=== PATIENT | male | born 1995 | race Asian ===

== ENCOUNTER 2019-09-14 01:44 | Emergency (ER) | payer OTHER ==
--- NOTE | 2019-09-14 02:19 | ED ---
Complex/Multi-Sys Presentation - HPI Summary HPI Summary: Patient is a 24 y/o M presenting to the ED for a chief complaint of nausea and dysphagia that began on 09/12/19. After eating ramen on 09/12/19, patient noticed dysphagia when eating the noodles. Every time he eats or drinking anything, he reports having dysphagia, nausea, and a sensation of phlegm in his throat. Patient denies vomiting, abdominal pain, cough, sore throat, shortness of breath, rhinorrhea, fever, or chills. He recently returned from [facility] on 09/12/19. He denies any positive sick contact with someone that had coronavirus. - History Of Current Complaint Chief Complaint: EDNauseaVomitDiarrh Time Seen by Provider: 09/14/19 01:58 Hx Obtained From: Patient Onset/Duration: Sudden Onset, Lasting Days - Began on 09/12/19, Still Present Timing: Constant Severity Currently: Moderate Severity Initially: Moderate Associated Signs And Symptoms: Positive: Nausea. Negative: SOB, Cough, Vomiting , Abdominal Pain, Fever - Allergies/Home Medications Allergies/Adverse Reactions: Allergies Allergy/AdvReac Type Severity Reaction Status Date / Time No Known Allergies Allergy Verified 09/14/19 01:49 Home Medications: Home Medications Bismuth Subsalicylate [Pepto-Bismol] 2 tab PO ONCE PRN 09/14/19 [History Confirmed 09/14/19] PMH/Surg Hx/FS Hx/Imm Hx Previously Healthy: Yes Endocrine/Hematology History: Denies: Hx Diabetes Sensory History: Denies: Hx Legally Blind, Hx Deafness Opthamlomology History: Denies: Hx Legally Blind EENT History: Denies: Hx Deafness - Surgical History Surgical History: None Surgery Procedure, Year, and Place: None Infectious Disease History: No Infectious Disease History: Reports: Traveled Outside the [place] in Last 30 Days - Family History Known Family History: Negative: Diabetes - Social History Occupation: Student Alcohol Use: None Hx Substance Use: No Substance Use Type: Reports: None Hx Tobacco Use: No Smoking Status (MU): Never Smoked Tobacco Review of Systems Negative: Fever, Chills Positive: Other - Positive phlegm in the throat and dysphagia. Negative: Nasal Discharge Negative: Shortness Of Breath, Cough Positive: Nausea. Negative: Abdominal Pain, Vomiting All Other Systems Reviewed And Are Negative: Yes Physical Exam - Summary Physical Exam Summary: Constitutional: Well-developed, Well-nourished, Alert. (-) Distressed Skin: Warm, Dry HENT: Normocephalic; Atraumatic. Postnasal drip. Eyes: Conjunctiva normal Neck: Musculoskeletal ROM normal neck. (-) JVD, (-) Stridor, (-) Tracheal deviation Cardio: Rhythm regular, rate normal, Heart sounds normal; Intact distal pulses; The pedal pulses are 2+ and symmetric. Radial pulses are 2+ and symmetric. (-) Murmur Pulmonary/Chest wall: Effort normal. (-) Respiratory distress, (-) Wheezes, (-) Rales Abd: Soft, (-) tenderness, (-) Distension, (-) Guarding, (-) Rebound Musculoskeletal: (-) Edema Lymph: (-) Cervical adenopathy Neuro: Alert, Oriented x3 Psych: Mood and affect Normal Triage Information Reviewed: Yes Vital Signs On Initial Exam: Initial Vitals Temp Pulse Resp BP Pulse Ox 98.9 F 100 15 139/98 96 09/14/19 01:47 09/14/19 01:47 09/14/19 01:47 09/14/19 01:47 09/14/19 01:47 Vital Signs Reviewed: Yes Procedures - Sedation Patient Received Moderate/Deep Sedation with Procedure: No Diagnostics - Vital Signs Vital Signs Temp Pulse Resp BP Pulse Ox 09/14/19 02:01 87 96 09/14/19 01:59 88 128/76 95 09/14/19 01:47 98.9 F 100 15 139/98 96 - Laboratory Lab Statement: Any lab studies that have been ordered have been reviewed, and results considered in the medical decision making process. Complex Multi-Symp Course/Dx Course Of Treatment: Patient is a 24 y/o M presenting to the ED for a chief complaint of nausea and dysphagia that began on 09/12/19. After eating ramen on 09/12/19, patient noticed dysphagia when eating the noodles. Every time he eats or drinking anything, he reports having dysphagia, nausea, and a sensation of phlegm in his throat. Patient denies vomiting, abdominal pain, cough, sore throat, shortness of breath, rhinorrhea, fever, or chills. He recently returned from [facility] on 09/12/19. He denies any positive sick contact with someone that had coronavirus. On exam, postnasal drip. In the ED course, patient was given Claritin 10 mg PO. Patient will be discharged with a diagnosis of postnasal drip. Follow up with PCP in 1 day. - Diagnoses Provider Diagnoses: Postnasal drip Discharge ED - Sign-Out/Discharge Documenting (check all that apply): Patient Departure - Discharge - Discharge Plan Condition: Stable Disposition: HOME Prescriptions: Loratadine/Pseudoephedrine [Claritin-D 24 Hour Tablet] 1 each PO DAILY #20 tab.er.24h Pseudoephedrine TAB* [Sudafed TAB*] 60 mg PO TID PRN #10 tab PRN Reason: Congestion Patient Education Materials: Postnasal Drip (DC) Print Language: KHMER Forms: *School Release Referrals: [facility] - [facility] [Z.BUSINESS, APPLICATION, OTHER] - Additional Instructions: if you develop fever, shortness of breath, cough or other flu-like symptoms, you should be re-evaluated. - Billing Disposition and Condition Condition: STABLE Disposition: Home - Attestation Statements Document Initiated by Andreinaibe: Yes Documenting Scribe: Ayah Kerr Provider For Whom Andreinaibwillie is Documenting (Include Credential): Yaritza Owens MD Scribe Attestation: IAyah scribed for Yaritza Conroy MD on 09/14/19 at 0329. Scribe Documentation Reviewed: Yes Provider Attestation: The documentation as recorded by the Ayah zamora accurately reflects the service I personally performed and the decisions made by me, Yaritza Conroy MD Status of Scribe Document: Viewed
[2019-09-14] MEDS ORDERED: LoraTADine TAB(NF) 10 MG TAB (AUTOSUB to CETIRIZINE) PO ONE (02:38)
[2019-09-14] MEDS ORDERED: Cetirizine* 10 MG TAB PO ONE (03:00)
[2019-09-14 03:10] VITALS: BP 103/68
== END 2019-09-14 03:10 | disposition home or self-care (01) ==
LOC: ED 01:44
DX: R09.82 Postnasal drip (principal)
CPT/HCPCS: 99282; A9270-GY

== ENCOUNTER 2019-09-17 00:12 | Emergency (ER) | payer OTHER ==
[2019-09-17 03:26] LABS: Influenza A Molecular Negative (Negative); Influenza B Molecular Negative (Negative)
[2019-09-17] MEDS ORDERED: Ondansetron ODT TAB* 4 MG SL PRN (03:38)
--- NOTE | 2019-09-17 04:27 | ED ---
Influenza-Like Illness - HPI Summary HPI Summary: This patient is a 24 year old M presenting to [facility] with a chief complaint of nausea since 09/12/2019. Pt came into the ED 3 days ago, and was prescribed Loratadine. Pt reports feeling nauseous but is unable to vomit. Pt reports feeling phlegm that was also not coming out, and increasing weakness. Symptoms aggravated by eating oiling food and stress. Symptoms alleviated by talking. Pt just returned from [facility], and has been worried about the farr virus. He reports having no contact with anyone who was sick. Pt is not allergic to any medication. He sometimes smokes, does not drink alcohol, and does not use drugs. Pt has no FHx. Patient denies diarrhea, fever, pain, cough and fever. On 08/17/2019 pt came into the ED complaining of nausea, dysphagia, and phlegm whenever he ate so they thought he had post-nasal drip and put him on Claritin. - History of Current Complaint Chief Complaint: EDFluSymptoms Time Seen by Provider: 09/17/19 02:49 Hx Obtained From: Patient Onset/Duration: Gradual Onset, Lasting Days, Still Present Severity: Mild Associated Signs & Symptoms: Negative - Allergy/Home Medications Allergies/Adverse Reactions: Allergies Allergy/AdvReac Type Severity Reaction Status Date / Time No Known Allergies Allergy Verified 09/17/19 03:08 PMH/Surg Hx/FS Hx/Imm Hx Endocrine/Hematology History: Denies: Hx Diabetes Sensory History: Denies: Hx Legally Blind, Hx Deafness Opthamlomology History: Denies: Hx Legally Blind - Surgical History Surgical History: None Surgery Procedure, Year, and Place: None Infectious Disease History: No Infectious Disease History: Reports: Traveled Outside the [place] in Last 30 Days - [place]not [facility] or [facility] area as per pt. - Family History Known Family History: Negative: Diabetes - Social History Alcohol Use: None Hx Substance Use: No Substance Use Type: Reports: None Hx Tobacco Use: No Smoking Status (MU): Never Smoked Tobacco - Additional Comments History Additional Comments: Home Medications Medication Instructions Recorded Confirmed Type Bismuth Subsalicylate 2 tab PO ONCE PRN 09/14/19 09/17/19 History [Pepto-Bismol] Loratadine/Pseudoephedrine 1 each PO DAILY #20 tab.er.24h 09/14/19 09/17/19 Rx [Claritin-D 24 Hour Tablet] Pseudoephedrine TAB* [Sudafed TAB*] 60 mg PO TID PRN #10 tab 09/14/19 09/17/19 Rx Review of Systems Positive: Nausea. Negative: Vomiting Positive: Weakness All Other Systems Reviewed And Are Negative: Yes Physical Exam - Summary Physical Exam Summary: General: Thin male. No acute distress. HEENT: Normocephalic, Atraumatic. Eyes: Conjuctiva normal, PERRL. Oropharynx: Clear, mucous membranes moist, (-) exudates. Neck: Soft, FROM, (-) lymphadenopathy, (-) thyromegaly, (-) JVD. Cardiovascular: Normal sinus rhythm, (-) murmur. Lungs: Clear to auscultation bilaterally (-) wheezes, (-) rales, (-) rhonchi. Abdomen: Soft, non-tender, non-distended, (-) organomegaly, normal bowel sounds. Back: (-) CVA tenderness Extremities: No edema. Skin: Warm, dry, (-) rash. Neuro: Alert and oriented x3, moves all extremities equally. No ataxia. No gait disturbance. No sensory deficit. No amnesia. Psychiatric: Moderately anxious appearing, affect normal. Triage Information Reviewed: Yes Vital Signs On Initial Exam: Initial Vitals Temp Pulse Resp BP Pulse Ox 98.6 F 92 18 131/93 98 09/17/19 00:13 09/17/19 00:13 09/17/19 00:13 09/17/19 00:13 09/17/19 00:13 Vital Signs Reviewed: Yes Procedures - Sedation Patient Received Moderate/Deep Sedation with Procedure: No Diagnostics - Vital Signs Vital Signs Temp Pulse Resp BP Pulse Ox 09/17/19 03:35 84 123/82 98 09/17/19 03:05 81 119/75 100 09/17/19 03:00 79 99 09/17/19 02:36 82 99 09/17/19 02:35 97.4 F 73 14 119/76 100 09/17/19 00:13 98.6 F 92 18 131/93 98 - Laboratory Lab Results: Lab Results 09/17/19 Range/Units 03:05 Influenza A (Rapid) Negative (Negative) Influenza B (Rapid) Negative (Negative) Lab Statement: Any lab studies that have been ordered have been reviewed, and results considered in the medical decision making process. Re-Evaluation - Re-Evaluation First Eval Re-Evaluation Time: 04:31 Comment: Discussed result and plan of care. Flu Symptom Course/Dx - Course Course Of Treatment: 24-year-old male presents for nausea. Patient was seen here 3 days ago for similar symptoms. He states he has been nauseated ever since coming back from [place] on September 12. He notes he was nowhere near the source of the coronavirus. Does not remember traveling with anyone who is sick. Has not had any fevers. However patient is very concerned about having the virus. Concerned he may he able to spread this to his friends. In ED, pt received Zofran. patient is clearly anxious. Discharged back to dorm. Follow- up with PCP. Follow-up sooner for any worsening symptoms. - Diagnoses Provider Diagnoses: Nausea, Anxiety Discharge ED - Sign-Out/Discharge Documenting (check all that apply): Patient Departure - Dsicharge - Discharge Plan Condition: Stable Disposition: HOME Prescriptions: Ondansetron ODT TAB* [Zofran 4 MG Odt TAB*] 4 mg SL Q6H PRN 5 Days #12 tab PRN Reason: Nausea/Vomiting Patient Education Materials: Anxiety (ED) Referrals: [facility] - [facility] [Primary Care Provider] - 3 Days Additional Instructions: Please follow up with your primary care physician within three days. Please return to ED for any new or worsening symptoms. - Billing Disposition and Condition Condition: STABLE Disposition: Home - Attestation Statements Document Initiated by Tony: Yes Documenting Scribe: Martina Jama Provider For Whom Tony is Documenting (Include Credential): Dr. Susan Anthony MD Scribe Attestation: Martina Lazar scribed for Dr. Susan Anthony MD on 09/17/19 at 0615. Scribe Documentation Reviewed: Yes Provider Attestation: The documentation as recorded by the Martina zamora accurately reflects the service I personally performed and the decisions made by me, Dr. Susan Anthony MD Status of Scribe Document: Viewed
[2019-09-17 04:36] VITALS: BP 126/79
== END 2019-09-17 04:35 | disposition home or self-care (01) ==
LOC: ED 00:12
DX: R11.0 Nausea (principal); F41.9 Anxiety disorder, unspecified
CPT/HCPCS: 99283; A9270-GY